=== PATIENT | male | born 1985 | race Caucasian/White ===

== ENCOUNTER 2019-05-27 11:58 | Emergency (ER) | payer MEDICAID ==
[~2019-05-27] VITALS: Ht 177.8 cm; Wt 95.3 kg
[2019-05-27 12:13] VITALS: BP_SYST 132
--- NOTE | 2019-05-27 12:22 | NUR ---
Note kacey in ED - 05/27/19 at 2007 by GER Patient to ER bed H1 to gown for evaluation. Side rails up.
--- NOTE | 2019-05-27 12:22 | NUR ---
Patient to ER bed H1 to gown for evaluation. Side rails up.
--- NOTE | 2019-05-27 12:24 | NUR ---
ER at bedside examining patient.
[2019-05-27 12:34] VITALS: BP_SYST 132
--- NOTE | 2019-05-27 12:34 | NUR ---
Patient given written and verbal discharge instructions and verbalizes understanding. ER MD discussed with patient the results and treatment provided. Patient in stable condition. ID arm band removed. NO Rx of given. Patient educated on pain management and to follow up with PMD. Pain Scale 0. Opportunity for questions provided and answered. Medication side effect fact sheet provided.
== END 2019-05-27 12:34 | disposition home or self-care (01) ==
LOC: SED 11:58
DX: L03.115 Cellulitis of right lower limb (principal); L03.116 Cellulitis of left lower limb
CPT/HCPCS: 99283